=== PATIENT | male | born 1950 | race Caucasian/White ===

== ENCOUNTER 2021-06-29 08:06 | Day surgery (SDC) | payer MEDICARE, OTHER ==
[~2021-06-29] VITALS: Ht 185.4 cm; Wt 100.0 kg
[~2021-06-29 08:06] MED LIST: HYDROmorphone 2 MG/ML INJ. IVP PRN; IV RINGERS,LACTATED 1000ML 1,000 ML IV SCH; MORPHINE SULFATE 2 MG/ML INJ. IVP PRN; PROCHLORPERAZINE 10 MG/2 ML VIAL. IVP PRN; ceFAZolin 2GM PREMIX 2 GM/50 ML BAG IV ONE; fentaNYL PF VIAL 100 MCG/2 ML VIAL IVP PRN
[2021-06-29] MEDS ORDERED: LISI10TA16 PO (08:19)
[2021-06-29] MEDS ORDERED: LIPITOR80 MG PO (08:19)
[2021-06-29] MEDS ORDERED: METF500T16 PO (08:19)
[2021-06-29] MEDS ORDERED: ISOS30TA68 PO (08:19)
[2021-06-29 08:22] VITALS: BP 161/95
[2021-06-29] MEDS ORDERED: BUPIVACAINE-EPI 0.5% 30 ML VIAL KIT. ONE (08:26)
[2021-06-29] MEDS ORDERED: LIDOCAINE 1%/EPI 1:100,000 20 ML VIAL. ONE (08:27)
[2021-06-29] MEDS: INSULIN LISPRO 100 UNIT/ML 3ML VIAL for OP,RR ONLY. SQ PRN ×2 (08:30→10:57)
[2021-06-29] MEDS ORDERED: PROPOFOL 10 MG/ML (20ML) VIAL. IV ONE (08:38)
[2021-06-29] MEDS ORDERED: FAMOTIDINE 20 MG/2 ML VIAL ONE (08:40)
[2021-06-29] MEDS ORDERED: LIDOCAINE 2% PF 5 ML VIAL. ONE (08:40)
[2021-06-29] MEDS ORDERED: PHENYLEPHRINE 10 MG/ML VIAL. ONE (08:41)
[2021-06-29] MEDS ORDERED: WATER FOR INJECTION,STERILE 10 ML IJ ONE (08:42)
[2021-06-29] MEDS ORDERED: ONDANSETRON PF 4 MG/2 ML VIAL. ONE (08:53)
[2021-06-29] MEDS ORDERED: MIDAZOLAM HCL/PF 2 MG/2 ML VIAL. ONE (08:55)
[2021-06-29] MEDS ORDERED: fentaNYL PF VIAL 100 MCG/2 ML VIAL ONE (08:56)
[2021-06-29] MEDS ORDERED: SUCCINYLCHOLINE 200 MG/10 ML VIAL. ONE (08:59)
[2021-06-29] MEDS ORDERED: BUPIVACAINE-EPI 0.25%-1:200000 MPF 30 ML VIAL. INJ ONE (10:20)
--- NOTE | 2021-06-29 10:38 | PDOC4 ---
Operative Note Operative Note Operative Note: Preoperative Diagnosis: Left axillary cyst Postoperative Diagnosis: Same Procedure: Excision of left axillary cyst 3X 1.5 cm, to the level of the subcutaneous tissues, no additional margin Surgeon: Kyle Burnisher And Bumper: Adin Foster MS 3 Anesthesia: General EBL: 10 mL Specimen: Left axillary cyst to pathology, 3 X 1.5 cm Drains: None Complications: None Indication: The patient is a 70-year-old male presented with a chronic wound due to prior infected left axillary sebaceous cyst. He was referred requesting excision of any remaining cystic structure. The risks of surgery were discussed which include bleeding, infection, pain, recurrence, scar tissue, potential need for additional surgery procedure. He understands and would like to proceed. Description: The patient was taken the operating room and placed supine on the operating table. General anesthesia was performed. The left axilla was prepped with ChloraPrep and draped in a standard surgical manner. An elliptical incision was made around the prior infected cyst which is a shallow chronic wound. Sharp dissection was used in subcutaneous tissues. The entire remaining cystic structure was excised from the surrounding tissues. The entire specimen measured 3 x 1-1/2 cm and was sent to pathology for evaluation. Hemostasis was achieved with cautery. The subcutaneous tissue was approximated with 3-0 Vicryl. Skin was closed with 4-0 Monocryl. A sterile dressing was then applied. The patient tolerated the procedure well and sent to recovery room in stable condition. At the end the case all counts were correct. BONITA COOPER MD Jun 29, 2021 10:38
[2021-06-29] MEDS ORDERED: HYDR-2761 PO (10:42)
--- NOTE | 2021-06-29 10:43 | DISCH ---
DISCHARGE INSTRUCTIONS Condition on Discharge Condition on Discharge: Stable Activity After Discharge Activity Instructions for Disc: Activity as tolerated Diet after Discharge Diet after Discharge: Regular Wound Incision Care Wound/Incision Care: Other, see below (keep dressing clean and dry X 72 hours, may then remove and shower) Follow-Up Follow up with: Lyn Meneses in office call for appt [phone] BONITA COOPER MD Jun 29, 2021 10:43
[2021-06-29] MEDS ORDERED: INSULIN LISPRO 100 UNIT/ML 3ML VIAL for OP,RR ONLY. SQ ONE ×2 (11:00)
[2021-06-29] MEDS ORDERED: HYDROcodone/APAP 5/325MG 1 TAB TABLET PO ONE (11:30)
[2021-06-29 11:45] VITALS: BP 162/90
--- NOTE | 2021-06-30 17:09 | PATHOLOGY ---
[facility] Accession Number: [id number] . 01 Material submitted: . axilla - AXILLARY CYST. Modifiers: left . 01 Clinical history: . L AXILLARY CYST . 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 [facility]Q 06/30/2021 1031 Local . 02 Comment: There is no evidence of malignancy. (JPM/db; 06/30/2021) . 02 Electronically signed: . Diego Jackson MD, Pathologist NPI- [id number] . 01 Gross description: . The specimen is received in formalin, labeled "Westlin, Tony, axillary cyst". The source is additionally listed on the requisition as "axillary cyst-LT". Received is an ellipse of pale norman skin with an attached underlying soft tissue measuring 2.7 x 1.4 x 1.1 cm in greatest dimension. Sectioning reveals an intact cystic structure measuring 0.9 cm filled with dark norman friable material. S[employer] Operator sections are submitted in cassette A1.([facility]; 06/29/2021) [facility] 06/29/2021 1513 Local . 02 Pathologist provided ICD-10: L72.9 . 02 CPT . 792002 Specimen Comment: A courtesy copy of this report has been sent to [phone], [phone] Specimen Comment: [id number] Specimen Comment: Report sent to / DR COLON Specimen Comment: A duplicate report has been generated due to demographic updates. Performed at: 01 [facility] [address] [place] [address] [address], [place], [place] [id number] MD Luis Balderas MD Phone: [phone] Performed at: 02 [facility] [address] [place], [place] [id number] MD Diego Jackson MD Phone: [phone]
== END 2021-06-29 12:03 | disposition home or self-care (01) ==
LOC: SURG 08:06
PROVIDERS: ATTEND Surgery
DX: L72.9 Follicular cyst of the skin and subcutaneous tissue, unspecified (principal); L72.3 Sebaceous cyst; I25.10 Atherosclerotic heart disease of native coronary artery without angina pectoris; I10 Essential (primary) hypertension; E78.00 Pure hypercholesterolemia, unspecified; E11.9 Type 2 diabetes mellitus without complications; Z79.84 Long term (current) use of oral hypoglycemic drugs; Z79.899 Other long term (current) drug therapy; Z98.890 Other specified postprocedural states; Z87.891 Personal history of nicotine dependence
CPT/HCPCS: 11403; 82962; 88304; A4213; A4930; A6254; A6258; J0330; J0690; J1815; J2250; J2370; J2405; J2704; J3010; J3490